=== PATIENT | female | born 1995 | race Caucasian/White ===

== ENCOUNTER 2024-08-12 11:18 | Outpatient (AMB) | payer OTHER, SELFPAY ==
--- NOTE | 2024-08-12 11:32 | AMB.GYNCLNOT ---
Vital Signs 08/12/24 11:43 Height 1.63 m Height Method Stated Weight 68.492 kg Weight Measurement Method Standing Scale BMI 25.9 BP 104/70 Blood Pressure Source Automatic Cuff Blood Pressure Location Right Upper Arm Position Sitting Respiration 17 Pulse 96 Pulse Source Monitor Temp 98.6 F Temp Source Temporal Artery Scan Pulse Oximetry (%) 96 Oxygen Delivery Method Room Air Allergies/Home Meds Allergies & Medications Allergies No Known Allergies Allergy (Verified 08/12/24 11:38) Medication Reconciliation No Known Home Medications 08/12/24 [History Confirmed 08/12/24] Intake Visit Data Collection New Patient or Established: New Patient (never been to [facility]) Reason for Visit:: REFER ANNUAL EXAM Seen by Clinical Staff ONLY (RN/MA): No Do You Feel Safe at Home: Yes Authorities Contacted: N/A PCP or OBGYN visit in last 3 months: No Hx Now: No Are you currently on any form of Control: Yes (DEPO) Pain Present Currently: No Pain Scale Used: Marin-Cordero/Numerical Pain scale:: 0 Smoking Status Smoking Status: Never smoker 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 Menstrual regularity: regular Flow: heavy Monthly: Yes How many days does period last: 6 Age at menarche: 11 Currently sexually active: Yes Additional comments: On Depo Provera COMPUTER OPERATIONS MANAGER: Past Medical History Additional Operations/Hospitalizations (year & reason): 4- 5 years ago and most recently 5 months ago Other Relevant History: Pt denies any significant medical or social history Questionnaires Covid-19 Vaccine Questionnaire Has patient been vacinated for Covid-19 Have you been vacinated for Covid-19: Yes PHQ-9 PHQ-2 Over the last 2 weeks, how often have you been bothered by any of the following problems? 1. Little interest or pleasure in doing things: not at all 2. Feeling down, depressed, or hopeless: not at all Total score: 0 PHQ-9 3. Trouble falling or staying asleep, or sleeping too much: Not at all 4. Feeling tired or having little energy: Not at all 5. Poor appetite or overeating: Not at all 6. Feeling bad about yourself - or that you are a failure or have let yourself or your family down: Not at all 7. Trouble concentrating on things, such as reading the newspaper or watching television: Not at all 8. Moving or speaking so slowly that other people could have noticed? - Or the opposite - being so fidgety or restless that you have been moving around a lot more than usual: not at all 9. Thoughts that you would be better off or of hurting yourself in some way: Not at all Total score: 0 If you checked off any problems, how difficult have these problems made it for you to do your work, take care of things at home, or get along with other people?: not difficult at all Source: Developed by Drs. Daniel Jones, Tari Trotter, Maximus Pizano and colleagues, with an educational kashif from [employer]. 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 She is here for a pap and pelvic exam. She has two sons, one is aged 4-5 and one was born 5 months ago. Per patient, she was in custodial in [facility] at the time. [facility] not [facility] a [facility] or pelvic exam on her. Review of Systems Review of Systems Narrative Review of Systems: the patient denies heavy cycles, abnormal discharge or pelvic pain. She is on Depo provera Exam Narrative Physical exam: Pt is quiet and respectful and answers questions appropriately. General Limitations: no limitations General Appearance: alert, in no apparent distress, comfortable, cooperative and well groomed Head Head exam: atraumatic, normocephalic and normal inspection Neck Neck exam: Present normal inspection, full ROM and trachea midline Chest Chest inspection: Present normal inspection and symmetric chest wall rise Exp Chest Breast: bilateral: other (Normal breast exam bilaterally) Resp Respiratory exam: Present normal lung sounds bilaterally Card Cardiovascular exam: Present regular rate, normal rhythm and normal heart sounds Abdominal Abdominal exam: Present soft and normal bowel sounds External exam: Present normal external exam (no pelvic organ prolapse, no significant scarring noted) Speculum exam: Present normal speculum exam Bimanual exam: Present normal bimanual exam (anteverted,) Extremities Extremities exam: Present normal inspection and full ROM Psych Psychiatric exam: Present normal affect and normal mood Skin Skin exam: Present warm, dry, intact and normal color Office Procedures OB Clinic LOC & Office Proc's Nursing/Assessment Patient Status: Initial/New Patient OB Clinic Nursing Assessment: Medication Reconciliation, Update PMH in EMR and Vital Signs OB Clinic Coordination of Care: Complex Care and Chronic Disease 1-5, Consent,records obtained, informed consent, Education Simp Pt/Fam, Lab and Imaging orders and Staff clarify orders Miscellaneous Interventions: Breast Exam and Pelvic/Pap Smear Set up New Patient Charge New Patient Point Assignment: 1149 New Patient Point Charge: [employer] Level 4 ([id number]) In Clinic Procedures Pap Smear: Yes Assessment & Plan Diagnosis / Problem List (1) Women's annual routine gynecological examination: Status: Acute Assessment and Plan: Pap with Co-testing to HPV performed, breast exam done and encouraged (2) Contraceptive education: Status: Acute Assessment and Plan: Patient desires to continue Depo provera at the [facility] and they will administer this. Condom use encouraged as needed for STD prevention.
[2024-08-12 11:43] VITALS: BP 104/70; PULSE 96; RESP 17; TEMP 37; O2SAT 96; BMI 25.9
== END 2024-08-12 12:06 | disposition home or self-care (01) ==
LOC: HODSOBC 11:18
PROVIDERS: PCP Internal Medicine; Referring Provider Internal Medicine; Supervising Provider Obstetrics & Gynecology; Visit Provider Obstetrics & Gynecology
DX: Z01.419 Encounter for gynecological examination (general) (routine) without abnormal findings (principal); Z11.51 Encounter for screening for human papillomavirus (HPV)
CPT/HCPCS: 99204; Q0091; G0463